=== PATIENT | male | born 1990 | race Caucasian/White ===

== ENCOUNTER 2016-10-22 18:58 | Emergency (ER) | payer BC ==
[2016-10-22] MEDS ORDERED: Acetaminophen 325 MG Tab PO ONE (19:47)
[2016-10-22] MEDS ORDERED: Ketorolac 60 MG/2 ML SDV IM ONE (19:47)
--- NOTE | 2016-10-22 20:25 | EDM.PDOC ---
ED HISTORY OF PRESENT ILLNESS - General Chief Complaint: Respiratory Problem Stated Complaint: PT HAS FLU SYMPTOMS Time Seen by Provider: 10/22/16 19:55 Source of Information: Reports: Patient History Limitations: Reports: No limitations - History of Present Illness INITIAL COMMENTS - FREE TEXT/NARRATIVE: HISTORY AND PHYSICAL: History of present illness: [Comes emergency room complaining of headache, body aches, fever and chills, fatigue and generalized malaise for the past 3 days. Numerous coworkers have been ill around him and several have been diagnosed with influenza. He has not checked a temperature before coming to the ER. Denies earaches and runny nose. He has a cough with occasional sputum production. Green to brown in color. No abdominal pain nausea or vomiting. He has taken some DayQuil for his symptoms which have not provided significant improvement. Patient is from [place] but is getting into [facility].] Review of systems: As per history of present illness and below otherwise all systems reviewed and negative. Past medical history: As per history of present illness and as reviewed below otherwise noncontributory. Surgical history: As per history of present illness and as reviewed below otherwise noncontributory. Social history: No reported history of drug or alcohol abuse. Family history: As per history of present illness and as reviewed below otherwise noncontributory. Physical exam: HEENT: Atraumatic, normocephalic. No sinus tenderness with palpation. TMs are pearly vega and without effusion bilaterally. Eyes appear tired. mucous membranes are pink and moist. throat clear, neck supple, nontender, no lymphadenopathy. Nares are patent turbinates are boggy discharge is clear. Lungs: Clear to auscultation, breath sounds equal bilaterally, wheezing crackles or rales. Heart: S1S2, regular rate and rhythm., negative for clicks, rubs, or JVD. Abdomen: Soft, nondistended, nontender. Pelvis: Stable nontender. Genitourinary: Deferred. Rectal: Deferred. Extremities: Atraumatic, without deformity. Neurovascular unremarkable. Neuro: Awake, alert, oriented. Motor and sensory unremarkable throughout. Exam nonfocal. Diagnostics: [Influenza swab] Therapeutics: [Toradol 60 mg IM, Tylenol 650 mg by mouth] Impression: [Influenza B] Plan: [Discussed with patient and his swab is positive for influenza B. He is outside the treatment window for Tamiflu. Recommend Tylenol and ibuprofen as needed for fever or discomfort. Robitussin or Delsym cough syrup when necessary. Plenty of rest push fluids. Establish care with a local primary care provider. All questions are answered and concerns are addressed.] Definitive disposition and diagnosis as appropriate pending reevaluation and review of above. - Related Data Allergies/ADRs: Allergies Allergy/AdvReac Type Severity Reaction Status Date / Time No Known Allergies Allergy Verified 10/22/16 21:41 Home Meds: Home Meds . [No Known Home Meds] 10/22/16 [History] Past Medical History - Past Health History Medical/Surgical History: Denies Medical/Surgical History - Infectious Disease History Infectious Disease History: Reports: None Other Infectious Disease History: childhood Social & Family History - Tobacco Use Smoking Status *Q: Former Smoker - Recreational Drug Use Recreational Drug Use: No ED ROS GENERAL - Review of Systems Review Of Systems: ROS reveals no pertinent complaints other than HPI. ED EXAM, GENERAL - Physical Exam Exam: See Below Course - Vital Signs Last Recorded V/S: Last Vital Signs Temp 101 F H 10/22/16 20:30 Pulse 74 10/22/16 20:30 Resp 16 10/22/16 20:30 BP 120/60 10/22/16 20:30 Pulse Ox 99 10/22/16 20:30 - Orders/Labs/Meds Meds: Medications Discontinued Medications Generic Name Dose Route Start Last Admin Trade Name Nicole PRN Reason Stop Dose Admin Acetaminophen 650 mg 10/22/16 19:47 10/22/16 19:51 Tylenol PO 10/22/16 19:48 650 mg NOW ONE Administration Ketorolac Tromethamine 60 mg 10/22/16 19:47 10/22/16 19:51 Toradol IM 10/22/16 19:48 60 mg ONETIME ONE Administration Departure - Departure Time of Disposition: 20:30 Disposition: Home, Self-Care 01 Condition: good Clinical Impression: Influenza B Instructions: Influenza, Adult, [id number] Referrals: PCP,None [Primary Care Provider] - Forms: ED Department Discharge Additional Instructions: The following information is given to patients seen in the emergency department who are being discharged to home. This information is to outline your options for follow-up care. We provide all patients seen in our emergency department with a follow-up referral. The need for follow-up, as well as the timing and circumstances, are variable depending upon the specifics of your emergency department visit. If you don't have a primary care physician on staff, we will provide you with a referral. We always advise you to contact your personal physician following an emergency department visit to inform them of the circumstance of the visit and for follow-up with them and/or the need for any referrals to a consulting specialist. The emergency department will also refer you to a specialist when appropriate. This referral assures that you have the opportunity for follow-up care with a specialist. All of these measure are taken in an effort to provide you with optimal care, which includes your follow-up. Under all circumstances we always encourage you to contact your private physician who remains a resource for coordinating your care. When calling for follow-up care, please make the office aware that this follow-up is from your recent emergency room visit. If for any reason you are refused follow-up, please contact the [facility] emergency department at and asked to speak to the emergency department charge nurse. [address] [address] Establish care with a local primary care provider at the clinic listed above. Followup there in 48-72 hours. Push fluids, get plenty of rest. Recommend Mucinex, Delsym or Robitussin for cough. Take Tylenol alternating with ibuprofen as needed for fever and discomfort. No work until Wednesday. Return to ER as needed and as discussed.
[2016-10-22 21:11] VITALS: BP 120/60
== END 2016-10-22 20:31 | disposition home or self-care (01) ==
LOC: MW.ED 18:58
DX: J10.89 Influenza due to other identified influenza virus with other manifestations (principal); Z87.891 Personal history of nicotine dependence
CPT/HCPCS: 87804; 96372; 99283; A9270; J1885